=== PATIENT | female | born 1995 | race African-American/Black ===

== ENCOUNTER 2022-11-11 18:19 | Emergency (ER) | payer OTHER ==
[2022-11-11 18:30] VITALS: BP 143/75; PULSE 94; RESP 18; TEMP 97.5; BMI 27.4
[2022-11-11] MEDS ORDERED: KETOROLAC TROMETHAMINE 30 MG/1 ML VIAL IM ONE (19:52)
[2022-11-11] MEDS ORDERED: LIDOCAINE 5% TOPICAL PATCH TP ONE (19:52)
[2022-11-11] MEDS ORDERED: METHOCARBAMOL 500 MG TABLET PO ONE (19:52)
== END 2022-11-11 20:26 | disposition home or self-care (01) ==
LOC: JER 18:19 → JERFT 18:19
DX: S39.012A Strain of muscle, fascia and tendon of lower back, initial encounter (principal); X50.0XXA Overexertion from strenuous movement or load, initial encounter
CPT/HCPCS: 72070-TC-FY; 99283-25